=== PATIENT | male | born 1930 | race Caucasian/White ===

== ENCOUNTER 2016-09-29 07:49 | Day surgery (SDC) | payer MEDICARE, OTHER ==
[~2016-09-29] VITALS: Ht 180.3 cm; Wt 63.0 kg
[~2016-09-29 07:49] MED LIST: ACETAMINOPHEN 500 MG TAB (TYLENOL) PO SCH; AMLO10TA82 PO; ASPI-860 PO; BISA5TAB8 PO; CALC-140 PO; CYAN10006 PO; DEXT10TA2 PO; FERR15DR22 PO; GLUC100016 PO; LACT1CAP64 PO; LACTATED RINGERS 1,000 ML IV SCH; MIRALAX 17 GM P17 GM PO; MULT-954 PO; NF-LISIN40 PO; OMEP20CA12 PO; PRAV40TA2 PO; PSYL1PAC11 PO; RANI150T15 PO; SAXA1TBM2 PO; SODIUM CHLORIDE FLUSH 3 ML SYR IV PRN; ceFAZolin 2,000 MG in WATER (STERILE) FOR INJECTION 20 ML IV SCH; oxyCODONE IMMEDIATE RELEASE 5 MG (OXYIR) TAB PO SCH
[2016-09-29] MEDS ORDERED: BUPIVACAINE/EPINEPHRINE 0.25%-1:200,000 (MARCAINE) 30 ML VIAL INJ ONE (08:02)
[2016-09-29] MEDS ORDERED: ROPIVACAINE 0.2% 100 ML ONE (08:02)
[2016-09-29] MEDS ORDERED: LIDOCAINE/EPINEPHRINE 1%-1:100,000 (XYLOCAINE) 20ML VIAL ONE (08:02)
[2016-09-29 08:03] VITALS: BP 141/83
[2016-09-29] MEDS ORDERED: MIDAZOLAM 2 MG/2 ML (VERSED) VIAL ONE (08:46)
[2016-09-29] MEDS ORDERED: PROPOFOL 20 ML IV ONE ×2 (08:46→08:49)
[2016-09-29] MEDS ORDERED: ALFENTANIL 500 MCG/ML (ALFENTA) 5 ML AMP IV ONE (08:46)
[2016-09-29] MEDS ORDERED: ceFAZolin 1000 MG (ANCEF) VIAL ONE (08:50)
[2016-09-29] MEDS ORDERED: KETOROLAC 60 MG/2 ML (TORADOL) VIAL IM ONE (10:15)
[2016-09-29 10:31] VITALS: BP 138/79
[2016-09-29 11:17] VITALS: BP 126/50
--- NOTE | 2016-09-29 15:31 | OPERATIVE REPORT ---
DATE OF OPERATION: 09/29/2016 PRE-OPERATIVE DIAGNOSIS: Status post incarcerated left inguinal hernia POST-OPERATIVE DIAGNOSIS: Status post incarcerated left inguinal hernia, indirect OPERATIVE PROCEDURE: Open repair left inguinal hernia with mesh SURGEON: Luis Miguel Theodore MD RUBBER STAMP MAKER: Farhana Cohen RN, CSFA ANESTHESIA: Local 0.5% lidocaine with epinephrine plus 0.125% Marcaine with epinephrine and IV conscious sedation, Monitored Anesthesia Services POSITION: Supine PREP: Chlorhexidine ESTIMATED BLOOD LOSS: Minimal FINDINGS: Small indirect hernia sac with direct floor weakness. No femoral hernia palpable. INDICATIONS: This patient had presented to the emergency room last week with painful incarcerated left inguinal hernia. This was successfully reduced by the ER physician. He was sent to see me and surgery scheduled. OPERATIVE NOTE: Following satisfactory induction of analgesia the patient was prepped in sterile fashion. Local anesthetic was infiltrated and a skin crease incision made over the mid portion of the left inguinal canal. This was deepened to the external oblique fascia which was opened obliquely along its fibers. The ilioinguinal nerve was identified and preserved. High dissection of the cord structures revealed a small indirect sac. This was dissected to the internal ring and opened. This was found to contain a small amount of omental fat, which was reduced into the peritoneal cavity. Palpation from within the hernia sac revealed weakness of the inguinal floor, but no femoral hernia. The sac was sutured ligated at its base with 3-0 Vicryl. The excess portion was excised. As the sac appeared normally grossly, it was not submitted to pathology. Repair of the inguinal floor was accomplished using Prolene mesh, lot number [id number]. The mesh was cut to the appropriate shape and size. Mesh was secured with continuous 2-0 Prolene suture. The initial suture secured the mesh to the fascia overlying the periosteum of the pubic tubercle. The mesh was secured medially to the conjoined tendon and laterally to the shelving edge of Poupart's ligament. A slit was made in the cephalad portion of the mesh to accommodate passage of the cord structures. The tails were overlapped and the sutures continued cephalad to the internal ring, securing the mesh to internal oblique musculature. The sutures were then tied to each other. The newly created internal ring was snugged up such that it would only admit the tip of a Marilyn hemostat using additional figure-of-8 sutures of 2-0 Prolene. The cord structures were placed in anatomic position. The ON-Q catheter introducer was inserted percutaneously cephalad to the lateral portion of the incision and into the inguinal canal. The catheter was inserted through the peel-away sheath into the inguinal canal. Sheath was then removed and the catheter primed with local anesthetic. Closure was accomplished as follows. Owing to the proximity of the ilioinguinal nerve to the mesh, I had decided to relocate it cephalad to the external oblique musculature. The external oblique was closed with continuous 3-0 Prolene suture taking care to allow adequate room for passage of the ilioinguinal nerve at the lateral margin of the fascial incision. Lili's fascia was reapproximated with simple interrupted 3-0 Vicryl suture and the skin closed with continuous subcuticular suture of 4-0 Monocryl and Dermabond dressing. Dermabond was also applied to the ON-Q catheter insertion site. This was secured under Steri-Strips and Tegaderm dressing and attached to the ON-Q pump. The patient tolerated the procedure well and transferred to the recovery in stable condition. Final instrument, needle and sponge counts correct.
== END 2016-09-29 11:55 | disposition home or self-care (01) ==
LOC: ASC 07:49
PROVIDERS: ATTEND Surgery
PROC: 0YU60JZ Supplement Left Inguinal Region with Synthetic Substitute, Open Approach (ICD-10-PCS; principal; 2016-09-29)
DX: K40.90 Unilateral inguinal hernia, without obstruction or gangrene, not specified as recurrent (principal); E11.9 Type 2 diabetes mellitus without complications; K59.04 Chronic idiopathic constipation; K21.9 Gastro-esophageal reflux disease without esophagitis; I10 Essential (primary) hypertension
CPT/HCPCS: 49507; A4649; A9270; C1781; J0690; J1885; J2250; J2795; J7120

== ENCOUNTER 2017-01-18 20:12 | Inpatient (IN) | payer MEDICARE, OTHER ==
[~2017-01-18] VITALS: Ht 174 cm; Wt 64.7 kg
[~2017-01-18 20:12] MED LIST changes: -ACETAMINOPHEN 500 MG TAB (TYLENOL) PO SCH; -LACTATED RINGERS 1,000 ML IV SCH; -SODIUM CHLORIDE FLUSH 3 ML SYR IV PRN; -ceFAZolin 2,000 MG in WATER (STERILE) FOR INJECTION 20 ML IV SCH; -oxyCODONE IMMEDIATE RELEASE 5 MG (OXYIR) TAB PO SCH
--- NOTE | 2017-01-18 20:14 | NUR ---
Pt presents to ER ambulatory with complaint of burning and difficulty urinating. Onset of symptoms approximately 1800 tonight.
[2017-01-18] MEDS ORDERED: ONDANSETRON 2 MG/ML (Z0FRAN) 2 ML VIAL IV ONE (21:15)
[2017-01-18] MEDS ORDERED: SODIUM CHLORIDE FLUSH 10 ML SYR IV PRN ×2 (21:15)
[2017-01-18] MEDS ORDERED: NS IV 500 ML 500 ML IV SCH (21:15)
[2017-01-18] MEDS ORDERED: SODIUM CHLORIDE FLUSH 3 ML SYR IV PRN (21:15)
[2017-01-18] MEDS ORDERED: KETOROLAC 15 MG/ML (TORADOL) 1 ML VIAL IV ONE (21:15)
[2017-01-18 21:57] LABS: BILIRUBIN,URINE Negative (Negative); CLARITY,URINE Clear; COLOR,URINE Yellow; GLUCOSE, URINE (UA) 1+ (Negative); LEUKOCYTE ESTERASE ,URINE Negative (Negative); PH,URINE 8.5 (5.0 - 8.0); UROBILINOGEN,URINE 0.2 mg/dL (0.2-1.0)
[2017-01-18 22:06] LABS: URINE CENTRIFUGED VOLUME 12 mL
[2017-01-18 22:09] LABS: RBC,URINE 0-2 /HPF
--- NOTE | 2017-01-18 22:16 | NUR ---
Pt admitted to Med/Surg Rm 303 for possible hernia repair. Report given to ONEIDA Avery. Pt transported via wheelchair by ONEIDA Ann.
[2017-01-18 22:20] LABS: MEAN CORPUSCULAR HEMOGLOBIN 29.6 PG (26.0-34.0); MEAN CORPUSCULAR HGB CONC 34.2 g/dL (31.0-37.0); MEAN CORPUSCULAR VOLUME 87 FL (80-100); MEAN PLATELET VOLUME 8.7 FL (6.0-9.5); PLATELET COUNT 332 10^3uL (150-450)
[2017-01-18 22:31] LABS: ALBUMIN 4.7 g/dL (3.4-5.0); ANION GAP 18.5 MEQ/L (3-15); CALCULATED IONIZED CALCIUM 4.1 mg/dL (3.8-4.6); TOTAL PROTEIN 7.9 g/dL (6.4-8.5)
--- NOTE | 2017-01-18 22:33 | History and Physical (E) ---
Surgical History & Physical PCP: Carlos Gates MD CC: Painful left groin bulge HPI: This patient, who had an open repair of a left inguinal hernia with mesh in September, presents with a 1 month history of a recurrent left groin bulge. Today for the first time it became painful. Bulge cannot be reduced. Pain is dull, 6/10, and radiating to the right side. No modifying factors. No nausea. He has chronic constipation, with a normal firm, brown BM tonight. No blood or melena. ROS: CONSTITUTION: Denies weight loss or gain. Denies fever or chills. HEENT: Chronic hearing loss. Wears hearing aids. CV: No chest pain, palpitations. PULM: No cough, shortness of breath, difficulty breathing. GI: No upset stomach, nausea, vomiting, or diarrhea. No blood in stool. Has chronic constipation. Last meal was at 6 pm today. : No dysuria. No blood in urine. Has nocturia. MS: Has chronic bilateral knee pain. NEURO: No numbness or tingling. No weakness. INTEG: No rashes, lesions, or sores. ENDO: No heat or cold intolerance. No polydipsia or polyuria. HEME/LYMPH: No easy bruising or bleeding. No swollen glands. PSYCH: No change in mood or behavior. Coded Allergies: cimetidine (Verified Allergy, Unknown, 09/07/16) Scheduled Amlodipine Besylate (Amlodipine Besylate) 10 MG PO DAILY (Reported) Aspirin (Aspirin) 81 MG PO DAILY (Reported) Bisacodyl (Dulcolax) 10 MG PO BID Calcium Carbonate/Vitamin D3 (Calcium + Vitamin D Tablet) 1 EACH PO DAILY ( Reported) Cyanocobalamin (Vitamin B-12) (Vitamin B-12) 1,000 MCG PO DAILY (Reported) Dextroamphetamine Sulfate (Dextroamphetamine Sulfate) 10 MG PO DAILY (Reported) Ferrous Sulfate (Iron) 65 MG PO DAILY (Reported) Glucosamine Sulfate 2KCL (Glucosamine) Unknown Dose PO BID (Reported) Lactobacillus Combo No.11 (Probiotic) 1 EACH PO DAILY (Reported) Lisinopril (Lisinopril) 40 MG PO DAILY (Reported) Multivitamin (Multi Vitamin Daily) 1 EACH PO DAILY (Reported) Omeprazole (Omeprazole) 20 MG PO DAILY (Reported) Polyethylene Glycol (Miralax 17 Gm Packet) 17 GM PO Q4H Pravastatin Sodium (Pravastatin Sodium) 40 MG PO DAILY (Reported) Psyllium Husk/Aspartame (Metamucil Sugar Free) 3.4 GM PO BID (Reported) Ranitidine HCl (Zantac) 150 MG PO DAILY (Reported) Saxagliptin HCl/Metformin HCl (Kombiglyze XR 2.5-1,000 mg Tab) 1 EACH PO BID ( Reported) PMH: NIDDM, Htn, GERD PSH: Inguinal hernia repair (right) age 30, TURP, Panendoscopy 2006, left inguinal hernia repair September 2016 Social History: , lives at home. Has an occasional glass of wine. No tobacco. FMH: Mother with CHF PHYSICAL EXAM GEN: Well developed, in no distress. 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 No neck mass. CV: RR no murmurs or gallops LUNGS: Clear to P & A with no CVAT. ABD: Soft, nontender, normal bowel sounds. Soft irreducible, non tender, 5 cm bulge left groin lateral and caudal to prior incision. No femoral mass or palpable lymph nodes. Testes normal. palpation of inguinal canal on the left reveals no mass along the cord. No right inguinal hernia. Rectal exam in September was negative, and not repeated tonight. EXTREMITIES: No edema or tenderness. Pulses 2+ INTEG: No rash or jaundice. NEURO: No focal change, except decreased hearing acuity. Patient alert, oriented , with appropriate affect. Vital Signs Date Time Temp Pulse Resp B/P Pulse Ox O2 Delivery O2 Flow Rate FiO2 01/18/17 22:04 Room Air 01/18/17 20:21 97.1 74 18 167/88 100 Lab Results: Laboratory Results Past 24 Hrs 01/18/17 20:55: Urine Bacteria None seen, Urine Bilirubin Negative, Urine Blood Negative, Urine Clarity Clear, Urine Collection Type Clean catch, Urine Color Yellow, Urine Glucose (UA) 1+, Urine Hyaline Casts Rare, Urine Ketones 1+, Urine Leukocyte Esterase Negative, Urine Microscopic RBC 0-2, Urine Nitrite Negative, Urine Protein 2+, Urine Specific [place] 1.020, Urine Squamous Epithelial Cells 0-2, Urine Urobilinogen 0.2, Urine WBC 0-2, Urine pH 8.5, Volume Urine Centrifuged 12 ml CBC with Hgb13, WBC 11.9 (84% polys, 3% bands). CMP shows sodium 132, BUN 29, glucose 218 Imaging: Abdominal series shows abundant stool in colon, no free air or obstructive pattern. Summary of Old Records: Prior hernia was incarcerated but successfully reduced in the ER on 09/07/16. He had elective open repair with mesh on 09/29/16. Last post op visit on showed repair intact and no swelling. Patient had panendoscopy in 2006 for maroon stool. EGD showed gastric fundic polyp, colonoscopy showed sigmoid diverticulae and a tiny transverse colon polyp that was hyperplastic. He also had internal hemorrhoids that were banded. Impression: Incarcerated left groin hernia, femoral vs recurrent inguinal. Hx NIDDM, Htn. Plan: Observation bed, symptom control. Open repair tomorrow. Options, nature, risks , rewards discussed with patient and spouse, who understand and wish to proceed. Perioperative hospitalist consult. End of Report . ORALIA BOLTON MD January 18, 2017 22:32
[2017-01-18 22:45] LABS: BAND NEUTROPHILS % 3 % (0-6); LYMPHOCYTES # 0.8 #; MONOCYTES # 0.7 #; MONOCYTES % 6 % (3-11); RBC MORPH NORMAL (NORMAL); SEGMENTED NEUTROPHILS % 84 % (51-67); TOTAL CELLS COUNTED 100
[2017-01-18] MEDS ORDERED: ACETAMINOPHEN 325 MG TAB (TYLENOL) PO PRN (22:45)
[2017-01-18] MEDS ORDERED: ONDANSETRON 2 MG/ML (Z0FRAN) 2 ML VIAL IV PRN (22:45)
[2017-01-18 22:55] VITALS: BP 165/82
--- NOTE | 2017-01-18 22:55 | NUR ---
Patient admitted to room 303 at this time. Reports pain 6/10 and is requesting pain medication. Surgical consult signed, scrub completed as ordered. Ultram given as ordered. No needs at this time. Will continue to monitor.
[2017-01-19] VITALS (13 sets, daily range): BP systolic 137–180; BP diastolic 37–87
[2017-01-19] MEDS ORDERED: LACTATED RINGERS 1,000 ML IV ONE (05:52)
--- NOTE | 2017-01-19 06:38 | NUR ---
Patient rests in bed throughout night without needs, reports minimal pain while resting in bed. Up with standby assistance. No needs at this time.
[2017-01-19] MEDS ORDERED: morphine INJ 2 MG/ML 1 ML SYRINGE IV PRN (07:55)
[2017-01-19] MEDS: amLODIPine 10 MG (NORVASC) TAB PO SCH (08:15)
[2017-01-19] MEDS: lisINopril 40 MG (PRINIVIL) TABLET PO SCH (08:16)
[2017-01-19] MEDS: PRAVASTATIN 20 MG (PRAVACHOL) TABLET PO SCH (08:16)
[2017-01-19] MEDS ORDERED: ceFAZolin 2,000 MG in SODIUM CHLORIDE 100 ML IV ONE (08:20)
[2017-01-19] MEDS ORDERED: ceFAZolin 2,000 MG in WATER (STERILE) FOR INJECTION 20 ML IV SCH (08:50)
--- NOTE | 2017-01-19 08:58 | Progress Note (E) ---
Progress Note Surgery note Subjective: Patient is comfortable. No pain or nausea. Patient reports he takes Metamucil twice a day, intermittently and prn Miralax, but admits he does not drink adequate water. Objective: Hernia has spontaneously reduced. No abdominal or groin tenderness. Accu check is 164. Impression: Stable. Recommendations: OR today. Consult hospitalist for medical management. Will try to establish a bowel regimen with the patient after surgery. He will need to follow up with his PCP, as well. ORALIA BOLTON MD January 19, 2017 08:58
--- NOTE | 2017-01-19 09:09 | NUR ---
NUTRITION ASSESSMENT Level 1 Patient: Triston Sinha Age/Sex: 86/M Date Screened: 01-19-17 Weight: 142.3#/64.7 kg Height: 68.5 inches Primary Diagnosis: incarcerated groin hernia Diet Order: NPO Relevant labs: N/A Food allergies: N Nutrition Assessment Criteria Age over 80: 4 points Body Mass Index (BMI) under 19: N Admission Screening Indicates Risk? N Moderate/High Risk Diagnosis: 3 points TPN or PPN: N NPO or clear liquid diet: Yes Serum Glucose <70 or >180: N/A Hgb A1c >6.7: N/A Total: 7 points Risk Screen: __ Patient at low nutritional risk based on available data; reevaluate in 5-7 days __ Patient at moderate nutritional risk based on available data; reevaluate in 3-5 days _X_ Patient at high nutritional risk; complete Nutrition Assessment within 48 hours of admission.
--- NOTE | 2017-01-19 09:14 | Diagnostic Imaging Report ---
INDICATION: Abdominal pain Supine and upright views of the abdomen are obtained with single view of the chest. Comparison is made study of 09/07/2016. Overall heart size and pulmonary vascularity appear to be within normal limits. There is decreased density in the nodular focus in the left lung base, however, the finding does persist. In the abdomen, there is large amount of colonic stool, however, there is persistent paucity of distal colonic stool and rectal stool material. There is mild gaseous dilatation of central small bowel loops. IMPRESSION: Findings remain nonspecific. Large amount of stool likely reflects constipation although distal obstruction is not fully excluded. Overall, there has been no significant change in the abdomen. The nodular density in the left lung base persists but does demonstrate decreased density compared to previous study. This could be further assessed on additional followup exam. Dictated by: Dictated on workstation # [id number]
--- NOTE | 2017-01-19 10:41 | Progress Note (E) ---
Progress Note Hosptialist Consult: PCP- Dr. Susi Gates Surgeon- Arben HPI- Mr Sinha was admitted by Dr. Theodore for repair of a left ingunal hernia. We are asked to follow the pt for HTN and diabetes management. When I saw him- hes alert, up to bedside doing a cross word puzzle. He has no new complaints or issues. He has latter-day friends here visiting him. Denies SOB or chest pain. BS this am 164. NPO for surgery. PMH- HTN NIDDM Constipation Anemia Gerd HLD Diverticulosis Colon polyp Hemorrhoids PSH- IHR TURP Panendoscopy FH- Mother had CHF SH- , lives at home with his , occasional wine, non smoker Allergies: Cimetidine Meds- See list below I & O Past 24 hrs 01/19/17 07:00 Output Total 700 ml Balance -700 ml Output Urine Total 700 ml Vital Signs Date Time Temp Pulse Resp B/P Pulse Ox O2 Delivery O2 Flow Rate FiO2 01/19/17 08:11 97.7 84 20 143/87 96 Room air CBC BMP Last 24 Hrs 01/18/17 21:55 Laboratory Results Past 24 Hrs 01/18/17 20:55: Urine Bacteria None seen, Urine Bilirubin Negative, Urine Blood Negative, Urine Clarity Clear, Urine Collection Type Clean catch, Urine Color Yellow, Urine Glucose (UA) 1+, Urine Hyaline Casts Rare, Urine Ketones 1+, Urine Leukocyte Esterase Negative, Urine Microscopic RBC 0-2, Urine Nitrite Negative, Urine Protein 2+, Urine Specific [place] 1.020, Urine Squamous Epithelial Cells 0-2, Urine Urobilinogen 0.2, Urine WBC 0-2, Urine pH 8.5, Volume Urine Centrifuged 12 ml 01/18/17 21:55: Absolute Band Neutrophils 0.3, Alanine Aminotransferase (ALT/SGPT) 30, Albumin 4.7, Albumin/Globulin Ratio 1.468, Alkaline Phosphatase 112, Amylase Level 48, Anion Gap 18.5, Aspartate Amino Transf (AST/SGOT) 28, BUN/Creatinine Ratio 26, Band Neutrophils % 3, Basophils # (Auto) , Basophils (%) (Auto) , Blood Morphology Comment Normal, Blood Urea Nitrogen 29, Calcium Level 10.0, Calcium/ Ionized Calcium Ratio 4.1, Calculated Osmolality 268, Carbon Dioxide Level 26, Chloride Level 92, Creatinine 1.10, Differential Total Cells Counted 100, Eosinophils # (Auto) , Eosinophils (%) (Auto) , Estimat Glomerular Filtration Rate 76.6, Estimated GFR (Non- 63.3, Glucose Level 218, Hematocrit 38.00, Hemoglobin 13.0, Lipase 137, Lymphocytes # 0.8, Lymphocytes # (Auto) , Lymphocytes % (Manual) 7, Lymphocytes (%) (Auto) , Mean Corpuscular Hemoglobin 29.6, Mean Corpuscular Hemoglobin Concent 34.2, Mean Corpuscular Volume 87, Mean Platelet Volume 8.7, Monocytes # 0.7, Monocytes # (Auto) , Monocytes % (Manual) 6, Monocytes (%) (Auto) , Neutrophils # 10.0, Neutrophils # (Auto) , Neutrophils (%) (Auto) , Platelet Count 332, Potassium Level 4.6, Red Blood Count 4.39, Red Cell Distribution Width 12.5, Schistocytes , Segmented Neutrophils % 84, Sodium Level 132, Total Bilirubin 0.6, Total Protein 7.9, White Blood Count 11.90 Exam: Alert, pleasant, NAD HEENT: PERRLA EOMI wears glasses Neck supple Lungs clear bilaterally CV: S1S2 Murmur Abdomen soft nontender Ext: no cyanosis Neuro: Alert , no focal neuro changes seen A/P: Triston is a 86 year old male here for repair of a Left incarcerated hernia per Dr Theodore. He has history of HTN and Diabetes. HTN Diabetes HLD Anemia GERD F/V/E- per Surgery Disposition- per Surgery, will follow acuchecks and use SS insulin as needed until he is eating post op. Will follow. Pt seen and examined, agree with above. Surgery went well and BP and BS have been stable. Not taking much po yet and vomited once. Will continue current management and continue to follow. Cydney Reese APRN January 19, 2017 10:41 Johnnie Titus MD January 19, 2017 21:22
[2017-01-19] MEDS ORDERED: DEXTROSE ORAL GEL (GLUTOSE 40%) 15 GM TUBE PO PRN (10:50)
[2017-01-19] MEDS ORDERED: DEXTROSE 50% 25 GM/50 ML SYRINGE IV PRN (10:50)
[2017-01-19] MEDS ORDERED: GLUCAGON EMERGENCY 1 MG/KIT IM PRN (10:50)
--- NOTE | 2017-01-19 10:59 | NUR ---
NUTRITION ASSESSMENT Level II Patient: Triston Sinha Age/Sex: 86/M Date Assessed: 01-19-17 ASSESSMENT Pertinent History: Patient admitted with incarcerated hernia and screened at high nutritional risk secondary to elderly age and diagnosis. PMHx includes diabetes, HTN and GERD. He initially had hernia repair in 2016. He lives at home with his , and denied n/v/d. Weight history includes 153# in 2014 and 138# in 2016. Meds/Nutrition: NS Weight: 142.3#/64.7 kg Height: 68.5 inches Body Mass Index (BMI): 21.4 [place] Body Weight : 157#/71.3 kg % IBW: 90% GASTROINTESTINAL Appetite: N/A Diet Order: NPO Unintentional loss of >10 lbs. in 3 months: N Difficult to chew/swallow: N Diabetes: Yes Relevant Labs: N/A Calculations for Nutritional Assessment Estimated calorie needs: 25-28 kcals/kg = 1,600-1,800 kcals Estimated protein needs: 1.2-1.4 g/kg = 76-89 g./day DIAGNOSIS 1. Nutrition Diagnosis: Anticipated altered GI function related to surgery as evidenced by plan for hernia repair today. NUTRITIONAL INTERVENTION Goal: Patient will receive adequate nutrition to meet his needs within an appropriate time-frame. Plan: Pt. is going to surgery today; will monitor length of time NPO and tolerance to diet as advanced. MONITORING & EVALUATION __ Monitor patients menu selections __ Monitor patients food intake per nursing notes _X_ Monitor NPO/clear liquid days __ Monitor lab values __ Monitor I&O __ Other
[2017-01-19] MEDS: INSULIN LISPRO 1 UNIT/0.01 ML (HUMALOG) DOSE SC SCH ×3 (11:30→21:00)
--- NOTE | 2017-01-19 11:45 | NUR ---
IV fluid of LR and gravity tubing attached and pt ready to go to surgery. Glasses off. Tylenol 1000mg po given per physician order.
[2017-01-19] MEDS ORDERED: LIDOCAINE/EPINEPHRINE 1% 1:100,000 (XYLOCAINE) 30 ML VIAL INJ ONE (12:05)
[2017-01-19] MEDS ORDERED: BUPIVACAINE/EPINEPHRINE 0.25%-1:200,000 (MARCAINE) 30 ML VIAL INJ ONE (12:05)
[2017-01-19] MEDS ORDERED: ROPIVACAINE 0.2% 100 ML ONE (12:05)
[2017-01-19] MEDS ORDERED: ACETAMINOPHEN 500 MG TAB (TYLENOL) PO ONE (12:20)
[2017-01-19] MEDS ORDERED: PROPOFOL 20 ML IV ONE (12:37)
[2017-01-19] MEDS ORDERED: ALFENTANIL 1,000 MCG/2 ML AMP IV ONE (12:37)
[2017-01-19] MEDS ORDERED: SUCCINYLCHOLINE 20 MG/ML 10 ML VIAL ONE (12:37)
--- NOTE | 2017-01-19 12:40 | NUR ---
Pt taken to surgery per cart by Rita MOHAMUD. followed with pt and will be shown the waiting room area.
[2017-01-19] MEDS ORDERED: ePHEDrine SULFATE 50 MG/ML 1 ML AMP ONE (12:57)
[2017-01-19] MEDS ORDERED: ceFAZolin 1000 MG (ANCEF) VIAL ONE (13:00)
[2017-01-19] MEDS ORDERED: SODIUM CHLORIDE FLUSH 10 ML ONE (13:00)
[2017-01-19] MEDS ORDERED: KETOROLAC 60 MG/2 ML (TORADOL) VIAL IM ONE (13:43)
--- NOTE | 2017-01-19 14:05 | Post Operative Note (E) ---
Post Op Note 01/19/17 14:04 Pre-Operative Diagnosis: Incarcerated femoral hernia Post-Operative Diagnosis: Same Procedure: Open repair, infrainguinal approach Surgeon: Arben Drywall Sprayer: Vicki Findings: 1 cm defect containing preperitoneal fat (sac had reduced) Anesthesia: GOT EBL: 10 ml Drains: None Specimem: None Complications None Condition: Good. Op note dict #[id number] ORALIA BOLTON MD January 19, 2017 14:05
--- NOTE | 2017-01-19 14:45 | NUR ---
Pt returned from surgery per stretcher, ambulated to bed from [place]. Spouse in the room. Q pump to L side at the incision site.
--- NOTE | 2017-01-19 14:51 | OPERATIVE REPORT ---
DATE OF OPERATION: 01/19/2017 PRE-OPERATIVE DIAGNOSIS: Incarcerated left femoral hernia POST-OPERATIVE DIAGNOSIS: Incarcerated left femoral hernia OPERATIVE PROCEDURE: Open primary repair of left femoral hernia SURGEON: Luis Miguel Theodore MD ANESTHESIA: General orotracheal POSITION: Supine PREP: Chlorhexidine ESTIMATED BLOOD LOSS: 10 mL FINDINGS: 1. A 1 cm defect containing preperitoneal fat (hernia sac had been reduced preoperatively). 2. Previous inguinal hernia repair intact. INDICATIONS: This patient had presented to the emergency room some 4 months following open Left inguinal hernia repair with mesh. He had an irreducible, tender mass below, and lateral to the incision consistent with a femoral hernia. This spontaneously reduced after the patient was admitted and repair was planned for today. OPERATIVE NOTE: Following satisfactory induction of anesthesia, the patient was prepped and draped in sterile fashion. Local anesthetic of 0.25% Marcaine with epinephrine was infiltrated at planned incision site. The patient's previous left inguinal skin crease incision was re-entered. This was carried down to the fascia and palpation from the area caudal to the inguinal ligament revealed the preperitoneal fat bulge. To avoid entering the area of the previous mesh repair, an infrainguinal approach was utilized. The preperitoneal fat was dissected free from the surrounding tissue and reduced into the peritoneal cavity. This revealed a 1 cm fascial defect just medial to the femoral vein. Repair was accomplished using interrupted figure-of-8 sutures of #0 Prolene. The inguinal ligament was sutured to the floor of the femoral canal. Each suture was placed under direct vision taking care to avoid impingement on the femoral vein and artery. These sutures were snugged prior to tying to confirm this. After all sutures were placed they were tied. Palpation revealed good repair with adequate space for the femoral artery and vein. Closure was accomplished as follows. An ON-Q 3d designer catheter was inserted percutaneously cephalad and lateral to the incision through a separate stab wound using a peel-away introducer sheath. Catheter was coiled into the subcutaneous space above the repair. The Lili's fascia was reapproximated with simple interrupted 3-0 Vicryl suture and the skin incision closed with continuous subcuticular suture of 4-0 Monocryl and Dermabond dressing. Dermabond was also applied to the entry site of the ON-Q catheter, which was coiled and affixed to the skin with Steri-Strips and Tegaderm dressing. The patient tolerated the procedure well and transferred to recovery in stable condition. Final instrument, needle and sponge counts correct.
[2017-01-19] MEDS ORDERED: FLUT16SP NSEACH (14:55)
[2017-01-19] MEDS ORDERED: DEXT10CA4 PO (14:55)
[2017-01-19] MEDS ORDERED: POLY17PO6 PO (14:55)
[2017-01-19] MEDS ORDERED: FERR-74 PO (15:04)
--- NOTE | 2017-01-19 15:08 | NUR ---
MED REC COMPLETED-current med list obtained from Ext Med History application, retail pharmacy, and PCP listing.
--- NOTE | 2017-01-19 15:57 | NUR ---
Pt had a emesis of 100 cc. Pt had been eating jello.
--- NOTE | 2017-01-19 16:07 | NUR ---
IV of NS restarted @ 60 cc/hr. Zofran 3 mg IV given slow push.
--- NOTE | 2017-01-19 20:00 | NUR ---
Patient resting in bed watching tv. Denies any discomforts. Is alert and oriented. Lower abdominal incision clean and dry. Indermil intact to incision. On Q pump intact and functioning. Patient denies pain. Is [place] and difficult at times to communicate with. Pleasant. Bowel sounds present. Voiding without difficulty. Urine rosa. Taking liquids without nausea. Call light within reach.
[2017-01-19] MEDS: PSYLLIUM SF (METAMUCIL) PACKET PO SCH (21:09)
[2017-01-19] MEDS: POLYETHYLENE GLYCOL 17 GM (MIRALAX) PACKET PO SCH (21:09)
--- NOTE | 2017-01-20 | NUR ---
Awakened for vitals. Denies nausea. Denies pain. No concerns voiced.
[2017-01-20 00:23] VITALS: BP 132/63
[2017-01-20] MEDS: INSULIN LISPRO 1 UNIT/0.01 ML (HUMALOG) DOSE SC SCH (06:04)
--- NOTE | 2017-01-20 06:14 | NUR ---
Rested well tonight. IV infusing at 60 cc an hour. Taking liquids without nausea. Accu Check 136mg?dl
--- NOTE | 2017-01-20 06:17 | NUR ---
Lower abdominal incision clean and dry. Indermil intact. On Q pump intact an controlling patients discomfort. No nausea. Call light within reach.
[2017-01-20 07:52] VITALS: BP 147/71
--- NOTE | 2017-01-20 08:22 | Progress Note (E) ---
Progress Note Surgery note Subjective: Patient is comfortable. No nausea. Tolerating po well. Void/ ambulate without difficulty. Objective: Vitals atable. Abdomen soft, normal bowel sounds. Incision and On Q pump intact. Normal distal pulses. No leg edema. Impression: Doing well, condition good. Recommendations: Discharge home. I reviewed his meds with pharmacist yesterday. She suggested stopping the omeprazole, and making Zantac bid. She saw no problem with starting lactulose (for his constipation) and no interaction with his other meds. Discharge today. ORALIA BOLTON MD January 20, 2017 08:22
--- NOTE | 2017-01-20 08:26 | Discharge Instructions (E) ---
Discharge Instructions Instructions Keep incision clean and dry. When On-Q bulb is empty, remove catheter as instructed, and apply spot bandaid to site for 2 days. May then shower. Drink plenty of water (3--4 quarts per day). Take Metamucil twice a day, every day. Use Miralax only if needed for constipation (not daily). Activity Instructions No lifting over 20 lbs for [address] until pain free, off pain meds. Discharge Diet: Other (Diabetic diet) ORALIA BOLTON MD January 20, 2017 08:25
[2017-01-20] MEDS ORDERED: LACT10SO33 PO (08:32)
--- NOTE | 2017-01-20 08:34 | Discharge Instructions (E) ---
Discharge Instructions Instructions Keep incision clean and dry. When On-Q bulb is empty, remove catheter as instructed, and apply spot bandaid to site for 2 days. May then shower. Drink plenty of water (3--4 quarts per day). Take Metamucil twice a day, every day. Use Miralax only if needed for constipation (not daily). Activity Instructions No lifting over 20 lbs for [address] until pain free, off pain meds. Doctor's Appointment Dr. Theodore, 2 weeks. Keep prior appt. with your PCP Discharge Diet: Other ORALIA THEODORE MD January 20, 2017 08:34
[2017-01-20] MEDS: amLODIPine 10 MG (NORVASC) TAB PO SCH (08:55)
[2017-01-20] MEDS: PRAVASTATIN 20 MG (PRAVACHOL) TABLET PO SCH (08:55)
[2017-01-20] MEDS: POLYETHYLENE GLYCOL 17 GM (MIRALAX) PACKET PO SCH (08:56)
[2017-01-20] MEDS: PSYLLIUM SF (METAMUCIL) PACKET PO SCH (08:56)
[2017-01-20] MEDS: lisINopril 40 MG (PRINIVIL) TABLET PO SCH (09:01)
--- NOTE | 2017-01-20 09:30 | NUR ---
Patient was able to eat about 100% of his breakfast without difficulty. Voided well. Ambulates around the room frequently without complaint of pain. He was able to take tylenol and was happy with this. Refused any additional pain medications at this time.
--- NOTE | 2017-01-20 10:30 | NUR ---
Gave dismissal instructions to the patient and his . Informed them prescription for lactulose has been sent to [facility] electronically. Educated them on the removal of the On Q Pump when the bulb is deflated. Also informed them to follow up with Dr. Theodore in two weeks. Patient and his demonstrated verbal understanding.
--- NOTE | 2017-01-20 10:37 | NUR ---
Patient dismissed per wheelchair accompanied by a NETWORK INTERN.
--- NOTE | 2017-01-20 11:32 | DISCHARGE SUMMARY ---
ADMISSION DATE: 01/18/2017 DISCHARGE DATE: 01/20/2017 DISCHARGE DIAGNOSES: 1. Incarcerated left femoral hernia. 2. Chronic constipation. 3. Noninsulin dependent diabetes. 4. Hypertension. PROCEDURE: Open infrainguinal repair, left femoral hernia and ON-Q pump insertion, 01/19/2017 PRESENT ILLNESS AND POSITIVE PHYSICAL FINDINGS: This patient, who had an open repair of a left inguinal hernia with mesh in September presented with a 1-month history of a bulge in the left groin. On the day of admission the bulge became painful and the patient presented to the ER. He had no nausea. The patient does, however, continue to have chronic constipation despite treatment measures. This is longstanding. The patient does take Metamucil, but only as needed. Also he takes p.r.n. MiraLAX. After discussing with the patient, he does not take adequate water intake. Findings revealed the patient to be afebrile, with a mildly tender nonreducible 5-cm bulge in the left groin below the lateral corner of the previous left inguinal incision. Palpation within the inguinal canal revealed no evidence of inguinal hernia. The abdomen was benign. SIGNIFICANT X-RAY AND LABORATORY DATA: Significant for CBC with hemoglobin of 13, white count of 11,900 with 84% polys, 3% bands. CMP was significant for sodium of 132. BUN 2, glucose of 218. IMAGING: Abdominal films showed abundant stool in the colon with no obstructive pattern or free air. HOSPITAL COURSE AND TREATMENT: The patient was admitted overnight and taken to the OR the following morning where at that time the hernia had reduced. The patient had a 1-cm femoral hernia defect containing preperitoneal fat. This was repaired primarily with suture. The patient had an unremarkable postoperative course with discharge the following day. I reviewed the patient's medication list with the pharmacist including consideration for adding lactulose to the patient's medications to improve his constipation. She also recommended discontinuing the Omeprazole, but taking the Zantac once or twice a day as needed for his reflux symptoms. DISPOSITION: Prognosis is good. DISCHARGE INSTRUCTIONS: 1. The patient is instructed in the care of the ON-Q pump for his postop pain control and to remove it when the bulb is depleted. 2. He is to avoid lifting or straining over 20 pounds for 1 month. 3. He may shower once the ON-Q pump has been removed. 4. He is to resume his normal diabetic diet at home. 5. He is encouraged to drink at least 3 to 4 quarts of water a day for adequate hydration and to prevent constipation. He is also encouraged to take his Metamucil on a twice daily basis each day. 6. He is to follow up with me in 2 weeks and with his primary care physician, Dr. Gates as previously scheduled. DISCHARGE MEDICATIONS: 1. Amlodipine 10 mg daily. 2. Aspirin 81 mg daily. 3. Calcium carbonate vitamin D3 once daily. 4. Vitamin B12 1000 mcg daily. 5. Dextroamphetamine sulfate 10 mg daily. 6. Ferrous sulfate 65 mg daily. 7. Glucosamine sulfate 2 KCL twice daily. 8. Lactobacillus combo #11 (probiotic) 1 daily. 9. Lisinopril 40 mg daily. 10. Multivitamin once daily. 11. MiraLAX 17 gm as needed for constipation. 12. Pravastatin 40 mg daily. 13. Metamucil 3.4 gm twice daily. 14. Zantac 150 mg once or twice daily as needed for reflux. 15. Kombiglyze XR 2.01/1000 mg 1 each, twice daily. 16. In addition he is prescribed lactulose 15 mg (10 gm) twice daily. DISCONTINUED MEDICATIONS: He is to stop the Omeprazole that he was previously taking.
== END 2017-01-20 10:37 | disposition home or self-care (01) | DRG 352 ==
LOC: ED 20:14 → MED/SURG 22:55
PROVIDERS: ADMIT Surgery; ATTEND Surgery
PROC: 0YQ80ZZ Repair Left Femoral Region, Open Approach (ICD-10-PCS; principal; 2017-01-20)
DX: K41.30 Unilateral femoral hernia, with obstruction, without gangrene, not specified as recurrent (principal); K59.00 Constipation, unspecified; E11.9 Type 2 diabetes mellitus without complications; I10 Essential (primary) hypertension; K41.90 Unilateral femoral hernia, without obstruction or gangrene, not specified as recurrent; D64.9 Anemia, unspecified
CPT/HCPCS: 36415; 74022; 80053; 81003; 81015; 82150; 83690; 85025; 93005; 96374; 96375; 99283; 99284

== ENCOUNTER → 2017-01-31 | Outpatient (CLI) | payer MEDICARE, OTHER ==
[~2017-01-31] MED LIST changes: +DEXT10CA4 PO; +FERR-74 PO; +FLUT16SP NSEACH; +LACT10SO33 PO; +POLY17PO6 PO
== END ==
LOC: LAB 09:08
PROVIDERS: ATTEND Urology
DX: C61 Malignant neoplasm of prostate (principal)
CPT/HCPCS: 36415; 84153